=== PATIENT | male | born 1975 | race Caucasian/White ===

== ENCOUNTER 2021-09-19 17:30 | Outpatient (CLI) | payer BC | END 2021-09-19 17:31 | disposition home or self-care (01) | LOC: SLEEPLAB 17:30 | PROVIDERS: ATTEND Family Medicine | DX: G47.9 Sleep disorder, unspecified (principal); G47.33 Obstructive sleep apnea (adult) (pediatric); R53.83 Other fatigue; F41.9 Anxiety disorder, unspecified; R06.83 Snoring; G47.00 Insomnia, unspecified; F90.9 Attention-deficit hyperactivity disorder, unspecified type | CPT/HCPCS: 95800 ==

== ENCOUNTER 2022-10-25 07:24 | Day surgery (SDC) | payer BC ==
[2022-10-24 11:39] VITALS: BMI 29.2
[2022-10-25] MEDS ORDERED: Midazolam HCl 2 mg/2 ml Vial ONE (08:00)
[2022-10-25] MEDS ORDERED: Ropivacaine 0.2% HCl/PF 20 ML ONE (08:00)
[2022-10-25] MEDS ORDERED: Ropivacaine 0.5% HCl/PF (150 MG/30 ML VIAL) ONE (08:00)
[2022-10-25] MEDS ORDERED: fentaNYL 50 mcg/mL 1 mL Vial ONE (08:00)
[2022-10-25 08:47] LABS: #Eosinphils 0.2 thou/uL (0.0-0.7); #Monocytes 0.4 thou/uL (0.11-0.59); #Neutrophils 1.6 thou/uL (1.40-6.50); %Basophils 1.1 % (0.0-1.0); %Eosinophils 5.8 % (0.0-10.0); %Lymphocytes 38.5 % (21.0-51.0); %Monocytes 9.7 % (0.0-10.0); %Neutrophils 44.6 % (42.0-75.0); Hematocrit 41.5 % (42.0-52.0); Hemoglobin 13.7 g/dL (14.0-18.0); Mean Corpuscular Hemoglobin 31.4 pg (27.0-31.0); Mean Platelet Volume 8.7 fL (7.4-10.4); Platelet Count 185 10x3/uL (130-400); Red Blood Cell (RBC) Count 4.37 mill/uL (4.70-6.10); White Blood Cell (WBC) Count 3.6 10x3/uL (4.8-10.8)
[2022-10-25 09:15] LABS: Anion Gap 11 mmol/L (10-20); BUN (Urea Nitrogen) 20 mg/dL (8.9-20.6); Calc. Creatinine Clearance 105 mL/min (70-130); Calcium 9.1 mg/dL (7.8-10.44); Carbon Dioxide 23 mmol/L (22-29); Chloride 106 mmol/L (98-107); Estimated GFR 78; Glucose 77 mg/dL (70-105); Potassium 4.9 mmol/L (3.5-5.1); Sodium 135 mmol/L (136-145)
[2022-10-25] MEDS ORDERED: Ropivacaine 0.2% 550 ML 550 ML NERVE BLCK SCH (09:45)
[2022-10-25] MEDS ORDERED: HYDROcodone/Acetaminophen 10/325 mg Tablet PO PRN ×2 (09:45)
[2022-10-25] MEDS ORDERED: Zolpidem Tartrate 5 MG TAB PO PRN (09:45)
[2022-10-25] MEDS ORDERED: traMADol HCl 50 MG TAB PO PRN ×2 (09:45)
[2022-10-25] MEDS ORDERED: Ondansetron PF 4 MG/2 ML Vial IVP PRN (09:45)
[2022-10-25] MEDS ORDERED: Promethazine HCl 25 MG/ML VIAL IM PRN (09:45)
[2022-10-25] MEDS ORDERED: CEFAZOLIN 2 GM VIAL ONE (10:30)
[2022-10-25] MEDS ORDERED: Sodium Chloride 0.9% 100 ML ONE (10:30)
[2022-10-25] MEDS ORDERED: Rocuronium Bromide 10 MG/ML (10ML VIAL) ONE (10:48)
[2022-10-25] MEDS ORDERED: Ondansetron PF 4 MG/2 ML Vial ONE ×3 (10:48→12:07)
[2022-10-25] MEDS ORDERED: PROPOFOL 200 MG/20 ML VIAL ONE (10:48)
[2022-10-25] MEDS ORDERED: Lidocaine 1% PF 5 ML VIAL ONE (10:48)
[2022-10-25] MEDS ORDERED: Bupivacaine 0.25% HCL 30 ML VIAL ONE (11:12)
[2022-10-25] MEDS ORDERED: EPINEPHrine 1 MG/ML AMP ONE (11:12)
[2022-10-25] MEDS ORDERED: Ketorolac Tromethamine 30 MG/ML VIAL IVP SCH (12:00)
[2022-10-25] MEDS ORDERED: SUGAMMADEX SODIUM 200 MG/2 ML VIAL ONE ×2 (12:04→12:19)
== END 2022-10-25 15:12 | disposition home or self-care (01) ==
LOC: SDC 07:24
PROVIDERS: ATTEND Orthopaedic Surgery
PROC: 0LS34ZZ Reposition Right Upper Arm Tendon, Percutaneous Endoscopic Approach (ICD-10-PCS; principal; 2022-10-25)
DX: M75.101 Unspecified rotator cuff tear or rupture of right shoulder, not specified as traumatic (principal); S43.001A Unspecified subluxation of right shoulder joint, initial encounter; S46.122A Laceration of muscle, fascia and tendon of long head of biceps, left arm, initial encounter; F90.9 Attention-deficit hyperactivity disorder, unspecified type; R01.1 Cardiac murmur, unspecified; Z87.891 Personal history of nicotine dependence; Z79.899 Other long term (current) drug therapy; X58.XXXA Exposure to other specified factors, initial encounter
CPT/HCPCS: 80048; 85025; A4306; J0171; J2250; J2405; J2704; J2795; J3010; J3490; S0020

== ENCOUNTER 2023-04-22 08:08 | Outpatient (CLI) | payer BC | END 2023-04-22 08:09 | disposition home or self-care (01) | LOC: BICMRI 08:08 | PROVIDERS: ATTEND Orthopaedic Surgery | DX: M47.22 Other spondylosis with radiculopathy, cervical region (principal); M47.813 Spondylosis without myelopathy or radiculopathy, cervicothoracic region | CPT/HCPCS: 72141 ==